=== PATIENT | male | born 1995 | race Caucasian/White ===

== ENCOUNTER 2022-04-06 19:55 | Emergency (ER) | payer OTHER ==
[~2022-04-06] VITALS: Ht 170.2 cm; Wt 72.7 kg
[2022-04-06] MEDS ORDERED: NEURONTIN300 MG/CAP PO (21:15)
[2022-04-06] MEDS ORDERED: CELEBREX 1100 MG/CAP PO (21:15)
[2022-04-06] MEDS ORDERED: NORCO 325 MG-51 TAB PO (21:25)
[2022-04-06] MEDS ORDERED: DOXYCYCLINE 10100 MG PO (21:25)
[2022-04-06 22:12] VITALS: BP 122/75; PULSE 84; TEMP 98.3
== END 2022-04-06 22:12 | disposition home or self-care (01) ==
LOC: COL.ER 19:55
DX: N45.1 Epididymitis (principal)
CPT/HCPCS: J1790; J2270

== ENCOUNTER 2023-11-10 08:46 | Emergency (ER) | payer OTHER ==
[~2023-11-10] VITALS: Ht 170.2 cm; Wt 76.4 kg
[~2023-11-10 08:46] MED LIST: CELEBREX 1100 MG/CAP PO; DOXYCYCLINE 10100 MG PO; NEURONTIN300 MG/CAP PO; NORCO 325 MG-51 TAB PO
[2023-11-10 08:55] VITALS: BP 145/84; TEMP 97.8
[2023-11-10] MEDS ORDERED: LEXAPRO 10MG10 MG PO (08:57)
[2023-11-10] MEDS ORDERED: Ketorolac 30 MG/ML VIAL IM ONE (09:30)
[2023-11-10] MEDS ORDERED: MEDROL 4MG DOSPA4 MG PO (10:12)
[2023-11-10] MEDS ORDERED: VALIUM 2MG T2 MG/TAB PO (10:12)
[2023-11-10 10:20] VITALS: PULSE 64
== END 2023-11-10 10:20 | disposition home or self-care (01) ==
LOC: COL.ER 08:46
DX: S16.1XXA Strain of muscle, fascia and tendon at neck level, initial encounter (principal); X58.XXXA Exposure to other specified factors, initial encounter
CPT/HCPCS: J1885

== ENCOUNTER 2023-12-22 23:28 | Emergency (ER) | payer OTHER ==
[~2023-12-22] VITALS: Ht 167.6 cm; Wt 78.6 kg
[~2023-12-22 23:28] MED LIST changes: +LEXAPRO 10MG10 MG PO; +MEDROL 4MG DOSPA4 MG PO; +VALIUM 2MG T2 MG/TAB PO
[2023-12-22 23:38] VITALS: TEMP 97.9
[2023-12-23] MEDS ORDERED: Sulfamethoxazole/Trimethoprim 800-160 MG TAB PO ONE (00:15)
[2023-12-23] MEDS ORDERED: Ketorolac 60 MG/2 ML VIAL IM ONE (00:15)
[2023-12-23] MEDS ORDERED: SEPTRA DS 8001 TAB PO (00:55)
[2023-12-23] MEDS ORDERED: Home HYDROcodone/Acetaminophen 5/325 MG #4 TABS/PACK PO ONE (01:15)
[2023-12-23 01:24] VITALS: BP 128/84; PULSE 73
== END 2023-12-23 01:20 | disposition home or self-care (01) ==
LOC: COL.ER 23:28
DX: N45.1 Epididymitis (principal)
CPT/HCPCS: J1885